=== PATIENT | female | born 2000 | race Caucasian/White ===

== ENCOUNTER 2019-05-20 15:31 | Inpatient (IN) | payer OTHER ==
[~2019-05-20] VITALS: Ht 167.6 cm; Wt 59.9 kg
[~2019-05-20 15:31] MED LIST: SLOW FE160 MG PO
== END 2019-05-25 11:11 | disposition home or self-care (01) | DRG 833 ==
LOC: ER 15:31 → OB/GYN 18:51
PROVIDERS: ADMIT Obstetrics & Gynecology
PROC: 8E0ZXY6 Isolation (ICD-10-PCS; principal; 2019-05-21)
DX: O23.31 Infections of other parts of urinary tract in pregnancy, first trimester (principal); O21.0 Mild hyperemesis gravidarum; O99.011 Anemia complicating pregnancy, first trimester; B96.0 Mycoplasma pneumoniae [M. pneumoniae] as the cause of diseases classified elsewhere; D50.8 Other iron deficiency anemias; E87.6 Hypokalemia; Z34.81 Encounter for supervision of other normal pregnancy, first trimester

== ENCOUNTER → 2019-08-25 | Emergency (ER) | payer OTHER ==
[~2019-08-25] VITALS: Ht 162.6 cm; Wt 59.0 kg
[~2019-08-25] MED LIST changes: +PRENA1 CHEW TA1.4 MG
== END | disposition home or self-care (01) ==
LOC: ER 23:57
DX: O47.02 False labor before 37 completed weeks of gestation, second trimester (principal); Z34.02 Encounter for supervision of normal first pregnancy, second trimester

== ENCOUNTER 2019-08-26 03:28 | Outpatient (CLI) | payer OTHER | END 2019-08-27 11:14 | disposition home or self-care (01) | LOC: OBS/DEL 03:28 | DX: O99.012 Anemia complicating pregnancy, second trimester (principal); D64.89 Other specified anemias ==

== ENCOUNTER 2019-11-05 02:15 | Inpatient (IN) | payer OTHER ==
[~2019-11-05] VITALS: Ht 162.6 cm; Wt 62.1 kg
[2019-11-05] MEDS ORDERED: IRON 100 PLUS1 EACH PO (02:42)
== END 2019-11-07 16:20 | disposition home or self-care (01) | DRG 833 ==
LOC: OBS/DEL 02:15 → LDR 11-06 22:46 → OBS/DEL 11-06 22:46 → LDR 11-07 16:20
PROVIDERS: ADMIT Obstetrics & Gynecology
PROC: BY4FZZZ Ultrasonography of Third Trimester, Single Fetus (ICD-10-PCS; principal; 2019-11-06)
PROC: 4A1HXCZ Monitoring of Products of Conception, Cardiac Rate, External Approach (ICD-10-PCS; 2019-11-06)
DX: O26.843 Uterine size-date discrepancy, third trimester (principal); O60.03 Preterm labor without delivery, third trimester; O36.8130 Decreased fetal movements, third trimester, not applicable or unspecified; Z37.9 Outcome of delivery, unspecified

== ENCOUNTER 2019-11-11 01:09 | Inpatient (IN) | payer OTHER ==
[~2019-11-11] VITALS: Ht 162.6 cm; Wt 62.1 kg
[~2019-11-11 01:09] MED LIST changes: +IRON 100 PLUS1 EACH PO
== END 2019-11-12 11:10 | disposition home or self-care (01) | DRG 833 ==
LOC: OBS/DEL 01:09 → LDR 12:20 → OBS/DEL 12:20 → LDR 11-12 11:10
PROVIDERS: ADMIT Obstetrics & Gynecology
PROC: 4A1HXCZ Monitoring of Products of Conception, Cardiac Rate, External Approach (ICD-10-PCS; principal; 2019-11-11)
DX: O98.513 Other viral diseases complicating pregnancy, third trimester (principal); B96.0 Mycoplasma pneumoniae [M. pneumoniae] as the cause of diseases classified elsewhere; O99.013 Anemia complicating pregnancy, third trimester; D64.89 Other specified anemias; D50.8 Other iron deficiency anemias

== ENCOUNTER 2019-11-21 11:45 | Inpatient (IN) | payer OTHER ==
[~2019-11-21] VITALS: Ht 162.6 cm; Wt 62.1 kg
[2019-11-21] MEDS ORDERED: PRENATAL TABLE1 EAC1 PO (11:50)
[2019-11-21] MEDS ORDERED: IRON325 MG PO (11:51)
[2019-11-21] MEDS ORDERED: ZITHROMAX500 MG PO (11:52)
== END 2019-11-23 11:23 | disposition home or self-care (01) | DRG 807 ==
LOC: LDR 11:45 → OB/GYN 20:02
PROVIDERS: ADMIT Obstetrics & Gynecology
PROC: 10E0XZZ Delivery of Products of Conception, External Approach (ICD-10-PCS; principal; 2019-11-21)
PROC: 10907ZC Drainage of Amniotic Fluid, Therapeutic from Products of Conception, Via Natural or Artificial Opening (ICD-10-PCS; 2019-11-21)
PROC: 4A1HXFZ Monitoring of Products of Conception, Cardiac Rhythm, External Approach (ICD-10-PCS; 2019-11-21)
DX: O80 Encounter for full-term uncomplicated delivery (principal); Z37.0 Single live birth; Z3A.39 39 weeks gestation of pregnancy

== ENCOUNTER 2021-05-12 07:29 | Inpatient (IN) | payer OTHER ==
[~2021-05-12] VITALS: Ht 162.6 cm; Wt 69.4 kg
[~2021-05-12 07:29] MED LIST changes: +IRON325 MG PO; +PRENATAL TABLE1 EAC1 PO; +ZITHROMAX500 MG PO
== END 2021-05-14 17:53 | disposition home or self-care (01) | DRG 796 ==
LOC: OB/GYN 07:29 → LDR 07:29 → OB/GYN 10:46
PROVIDERS: ADMIT Obstetrics & Gynecology; ATTEND Obstetrics & Gynecology
PROC: 10E0XZZ Delivery of Products of Conception, External Approach (ICD-10-PCS; principal; 2021-05-12)
PROC: 4A1HXFZ Monitoring of Products of Conception, Cardiac Rhythm, External Approach (ICD-10-PCS; 2021-05-12)
PROC: 0UB70ZZ Excision of Bilateral Fallopian Tubes, Open Approach (ICD-10-PCS; 2021-05-13)
DX: O42.013 Preterm premature rupture of membranes, onset of labor within 24 hours of rupture, third trimester (principal); O60.14X0 Preterm labor third trimester with preterm delivery third trimester, not applicable or unspecified; Z37.0 Single live birth; Z3A.33 33 weeks gestation of pregnancy; Z30.2 Encounter for sterilization; Z20.822 Contact with and (suspected) exposure to COVID-19